=== PATIENT | female | born 1995 | race Caucasian/White ===

== ENCOUNTER 2017-10-30 10:48 | Emergency (ER) | payer OTHER ==
[~2017-10-30] VITALS: Ht 175.3 cm; Wt 67.4 kg
[2017-10-30 10:52] VITALS: BP 116/80
[2017-10-30 12:02] LABS: RAPID INFLUENZA A Negative (Negative); RAPID INFLUENZA B Negative (Negative)
== END 2017-10-30 12:21 | disposition home or self-care (01) ==
LOC: ED 12:02
DX: J20.8 Acute bronchitis due to other specified organisms (principal); J00 Acute nasopharyngitis [common cold]
CPT/HCPCS: 71020; 87400; 99285